=== PATIENT | female | born 1965 | race Caucasian/White ===

== ENCOUNTER 2021-01-23 20:19 | Inpatient (IN) | payer OTHER ==
[~2021-01-23] VITALS: Ht 154.9 cm; Wt 79.8 kg
[2021-01-23 20:35] VITALS: BP 139/64
--- NOTE | 2021-01-23 20:50 | NUR ---
55/F PATIENT BIB SELF FOR C/O STERNAL CP X 2 DAYS. PER PATIENT ALSO HAS R MID BACK PAIN. PATIENT BELIVES IT HAS TO DO WITH HER GALBLADDER. REPORTS NAUSEA AND DECREASED APPETITE. PT DENIES VOMITING, DIARRHEA MEDHX: GALLSTONES NKDA
--- NOTE | 2021-01-23 21:08 | NUR ---
EKG PERFORMED AT BEDSIDE. EKG READS SINUS RHYTHM @ 61
--- NOTE | 2021-01-23 21:38 | NUR ---
ULTRASOUND AT BEDSIDE
[2021-01-23 21:39] LABS: BASOPHILS # (AUTO) 0.1 K/uL (0.00-0.22); BASOPHILS % (AUTO) 0.6 % (0.0-2.0); EOSINOPHILS # (AUTO) 0.1 K/uL (0-0.4); EOSINOPHILS % (AUTO) 0.5 % (0.0-4.0); HEMATOCRIT 40.3 % (36-48); HEMOGLOBIN 13.3 g/dL (12.0-16.0); LYMPHOCYTES # (AUTO) 1.8 K/uL (2.5-16.5); LYMPHOCYTES % (AUTO) 15.1 % (20.5-51.1); MEAN CORPUSCULAR HEMOGLOBIN 30 pg (27-31); MEAN CORPUSCULAR HGB CONC 33 g/dL (33-37); MONOCYTES # (AUTO) 0.8 K/uL (0.8-1.0); MONOCYTES % (AUTO) 7.1 % (1.7-9.3); NEUTROPHILS # (AUTO) 8.9 K/uL (1.8-7.7); NEUTROPHILS % (AUTO) 76.7 % (42.2-75.2); PLATELET COUNT (AUTO) 350 K/uL (140-450); RED BLOOD CELL COUNT(AUTO) 4.43 MIL/uL (4.20-5.40); RED CELL DISTRIBUTION WIDTH 13.4 % (11.6-13.7); WHITE BLOOD COUNT (AUTO) 11.6 K/uL (4.8-10.8)
[2021-01-23] MEDS ORDERED: ONDANSETRON 4 MG/2 ML VIAL IVP ONE (21:40)
[2021-01-23] MEDS ORDERED: NACL 0.9% 1,000 ML IV ONE (21:40)
[2021-01-23] MEDS ORDERED: MORPHINE SULFATE 4 MG/ML SYR IVP ONE (21:40)
[2021-01-23 21:55] LABS: ALBUMIN 3.8 g/dL (3.4-5.0); ANION GAP 9.4 (8-16); CARBON DIOXIDE 28.5 mmol/L (21-32); CREATININE 0.6 mg/dL (0.6-1.3); POTASSIUM 3.9 mmol/L (3.5-5.1); TOTAL BILIRUBIN 0.4 mg/dL (0.0-1.0)
[2021-01-23] MEDS ORDERED: metroNIDAZOLE 500 MG/NS PREMIX 100 ML IV ONE (22:40)
[2021-01-23] MEDS ORDERED: LORazepam 2 MG/ML VIAL IVP PRN (23:15)
[2021-01-23] MEDS ORDERED: ONDANSETRON 4 MG/2 ML VIAL IVP PRN (23:15)
[2021-01-23] MEDS ORDERED: NAPR-54 PO (23:36)
[2021-01-23] MEDS ORDERED: TAMO20TA3 PO (23:36)
[2021-01-23] MEDS ORDERED: cefTRIAXone 1,000 MG VIAL ONE (23:43)
--- NOTE | 2021-01-24 00:02 | NUR ---
Patient will be admitted to care of DR. FLORES. Admited to TELEMETRY. Will go to room 119B. Belongings list completed. Report to ANU NAIK. PT TRANSPORTED BY EMT. Addendum: 01/24/21 at 0015 by FRANCIA PT ADMITTED TO [facility] ROOM 119
[2021-01-24 00:10] VITALS: BP 127/62
--- NOTE | 2021-01-24 00:10 | NUR ---
ADMITTED A 55F FROM ER. CAME BY WHEELCHAIR. MED SURG PT. AMBULATORY. CAME DUE TO RUQ ABDOMINAL PAIN THAT RADIATES TO THE BACK AND ALSO WITH NAUSEA. AWAKE,ALERT AND ORIENTED X4. SHE SAID SHE HAS THIS GALLSTONES IN THE PAST BUT NO SURGERY DONE. FLAGYL IVPB STILL INFUSING WHEN PT CAME TO THE FLOOR. SKIN INTACT ON ASSESSMENT. HAD HX OF BREAST CA YEAR 2018. HAD RADIATION AND MASS REMOVAL . PLAN OF CARE DISCUSSED AND VERBALIZED UNDERSTANDING. ORIENTED TO HOSPITAL ROUTINES, VISITING HOURS. FREQ ROUNDS NEEDED. BED ON LOW POSITION. CALL LIGHT PLACED WITHIN REACH. INSTRUCTED TO USE FOR ASSISTANCE . WILL CONTINUE TO MONITOR.
--- NOTE | 2021-01-24 01:19 | NUR ---
TALKED TO DR. NOEL AND GOT ORDER FOR IVF PT IS NPO FOR SURGERY LATER TODAY. PT NEED UA . ASKED ABOUT THE SURGERY AND HE SAID IT WILL BE TAKEN CARED OF LATER
--- NOTE | 2021-01-24 01:30 | NUR ---
ROUNDED ON PT. SHE STATES SHE HAS A HEADACHE. INFORMED HER THAT SHES NPO AND CANNOT RECEIVE TYLENOL BY MOUTH. PT STATED THE PAIN WAS TOLERABLE AND THAT SHE IS JUST HUNGRY THAT'S WHY SHE HAS A HEADACHE. GAVE ICE PACKS REQUESTED. WILL MONITOR PT. Addendum: 01/24/21 at 1429 by Char Braden RN NOTE WAS MEANT FOR 1330 PM NOT 0130 AM
[2021-01-24] MEDS: NACL 0.9% 1,000 ML IV SCH ×2 (01:37→12:03)
--- NOTE | 2021-01-24 03:00 | NUR ---
MADE ROUNDS. SLEEPING AT THIS TIME.
[2021-01-24 04:00] VITALS: BP 115/51
[2021-01-24] MEDS ORDERED: PIPERACILLIN/TAZOBACTAM 3.375 GM VIAL IV ONE ×2 (04:53→19:32)
[2021-01-24] MEDS: PIPERACILLIN/TAZOBACTAM 3.375 GM in DEXTROSE 5% 50 ML IV SCH ×3 (04:54→21:00)
[2021-01-24 05:40] LABS: BASOPHILS # (AUTO) 0.1 K/uL (0.00-0.22); BASOPHILS % (AUTO) 0.5 % (0.0-2.0); EOSINOPHILS # (AUTO) 0.2 K/uL (0-0.4); EOSINOPHILS % (AUTO) 1.8 % (0.0-4.0); HEMATOCRIT 37.7 % (36-48); HEMOGLOBIN 12.6 g/dL (12.0-16.0); LYMPHOCYTES # (AUTO) 2.1 K/uL (2.5-16.5); LYMPHOCYTES % (AUTO) 19.3 % (20.5-51.1); MEAN CORPUSCULAR HEMOGLOBIN 31 pg (27-31); MEAN CORPUSCULAR HGB CONC 33 g/dL (33-37); MEAN CORPUSCULAR VOLUME 91.3 fL (80-94); MONOCYTES # (AUTO) 1.2 K/uL (0.8-1.0); NEUTROPHILS # (AUTO) 7.4 K/uL (1.8-7.7); NEUTROPHILS % (AUTO) 67.4 % (42.2-75.2); PLATELET COUNT (AUTO) 336 K/uL (140-450); RED BLOOD CELL COUNT(AUTO) 4.13 MIL/uL (4.20-5.40); RED CELL DISTRIBUTION WIDTH 13.4 % (11.6-13.7); WHITE BLOOD COUNT (AUTO) 10.9 K/uL (4.8-10.8)
[2021-01-24 06:00] LABS: PROTHROMBIN TIME 10.6 secs (10.8-13.4)
--- NOTE | 2021-01-24 06:00 | NUR ---
PT KEPT NPO SINCE ADMISSION. PER MD ORDER. WITH IVF INFUSING WELL.
[2021-01-24 06:06] LABS: ALBUMIN 3.3 g/dL (3.4-5.0); ANION GAP 10.2 (8-16); CARBON DIOXIDE 28.5 mmol/L (21-32); CREATININE 0.6 mg/dL (0.6-1.3); MAGNESIUM 2.2 mg/dL (1.8-2.4); POTASSIUM 4.7 mmol/L (3.5-5.1); TOTAL BILIRUBIN 0.4 mg/dL (0.0-1.0)
--- NOTE | 2021-01-24 07:25 | NUR ---
RECEIVED BEDSIDE REPORT FROM OPERATING ROOM TECHNOLOGIST NURSE FOR CONTINUITY OF CARE. PT IS AWAKE AND ALERT, A&OX4. ON RA WITH BREATHING UNLABORED. PT IS AMBULATORY WITH STANDBY ASSISTANCE. SKIN IS WARM, DRY, AND INTACT. IV IS IN THE RIGHT AC 20 GAUGE RUNNING NS AT 80 ML PER HOUR PER ORDER. PT IS STABLE. PLAN OF CARE DISCUSSED.
--- NOTE | 2021-01-24 07:30 | NUR ---
ENDORSED PT IN STABLE CONDITION TO AM NURSE.
[2021-01-24 08:00] VITALS: BP 115/59
--- NOTE | 2021-01-24 08:29 | NUR ---
LOVENOX WAS HELD FOR PROCEDURE SCHEDULED TODAY AT 1800 PM.
--- NOTE | 2021-01-24 08:45 | NUR ---
SPOKE TO DR. DELGADO FROM [place]. SHE ASKED IF THE PT HAD BEEN VACCINATED FOR COVID. ASKED PT AND SHE RESPONDED THAT SHE RECEIVED THE MODERNA VACCINE BOTH DOSES IN OCTOBER 2020.
[2021-01-24] MEDS ORDERED: ENOXAPARIN 40 MG/0.4 ML SYR SUBQ SCH (09:00)
--- NOTE | 2021-01-24 09:09 | NUR ---
PATIENT HAS BEEN SCREENED AND CATEGORIZED LOW NUTRITION RISK. PATIENT WILL BE SEEN WITHIN 7 DAYS OF ADMISSION. 01/30/[address]
--- NOTE | 2021-01-24 09:46 | NUR ---
IS AT BEDSIDE TALKING TO PT. SHE APPEARS TO BE STABLE. DENIES PAIN OR N/V. BREATHING IS UNLABORED. PT IS AWARE OF PLAN OF CARE. WILL CONTINUE TO MONITOR.
[2021-01-24 10:46] LABS: APPEARANCE,URINE CLEAR (CLEAR); BILIRUBIN,URINE NEGATIVE (NEGATIVE); BLOOD, URINE TRACE-I (NEGATIVE); COLOR,URINE YELLOW (YELLOW); LEUKOCYTE ESTERASE ,URINE NEGATIVE (NEGATIVE); NITRITE, URINE NEGATIVE (NEGATIVE); UGLUCOSE NEGATIVE (NEGATIVE)
[2021-01-24 11:13] LABS: WBC,URINE 0-5 /HPF (0-5)
--- NOTE | 2021-01-24 11:41 | NUR ---
PT IS AWAKE, TALKING TO FAMILY AT BEDSIDE. PT DENIES PAIN. BREATHING IS UNLABORED ON RA. NO DISTRESS NOTED. PT IS STABLE.
[2021-01-24] MEDS ORDERED: fentaNYL citrate 0.05 MG/ML VIAL ONE ×2 (15:38→21:35)
[2021-01-24] MEDS ORDERED: SUCCINYLCHOLINE CHLORIDE 200 MG/10 ML VIAL IVP ONE (15:39)
[2021-01-24] MEDS ORDERED: ROCURONIUM 50 MG/5 ML VIAL IV ONE (15:39)
[2021-01-24] MEDS ORDERED: LIDOCAINE MPF 2% 100 MG/5 ML VIAL INJ ONE (15:39)
[2021-01-24] MEDS ORDERED: PROPOFOL 200 MG/20 ML VIAL IV ONE (15:39)
[2021-01-24] MEDS ORDERED: BUPIVACAINE-MPF/EPI 0.25% 30 ML VIAL INJ ONE (15:48)
--- NOTE | 2021-01-24 15:50 | NUR ---
DR. CALVILLO AT BEDSIDE EXPLAINING PROCEDURE TO PT. RISKS AND BENEFITS WERE IDENTIFIED AND PT VERBALIZED UNDERSTANDING. ALL QUESTIONS ANSWERED. PT AGREED TO THE PROCEDURE. CONSENTS SIGNED. Addendum: 01/24/21 at 1606 by Char Braden RN TWO ER NURSES WITNESSED WELL AT BEDSIDE.
[2021-01-24 16:00] VITALS: BP 129/45
--- NOTE | 2021-01-24 16:08 | NUR ---
PT WAS TAKEN OFF THE UNIT TO THE OR WITH TWO OR NURSES. PT WAS TRANSPORTED VIA BED. PT IS STABLE. WILL WAIT FOR RETURN.
--- NOTE | 2021-01-24 17:44 | NUR ---
PT IS STILL IN OR. WILL WAIT FOR PT TO ARRIVE BACK TO UNIT.
[2021-01-24] MEDS ORDERED: ONDANSETRON 4 MG/2 ML VIAL IVP PRN (18:40)
[2021-01-24] MEDS ORDERED: diphenhydrAMINE 50 MG/ML VIAL IVP PRN (18:40)
[2021-01-24] MEDS ORDERED: LACTATED RINGERS 1,000 ML IV SCH (18:40)
[2021-01-24] MEDS ORDERED: MEPERIDINE 25 MG/ML SYR IVP PRN (18:40)
[2021-01-24] MEDS ORDERED: SEVOFLURANE 250 ML BTL INH ONE (19:00)
[2021-01-24] MEDS ORDERED: DEXAMETHASONE 4 MG/ML VIAL ONE (19:16)
[2021-01-24] MEDS ORDERED: NEOSTIGMINE 1:1000 10 MG/10 ML VIAL ONE (19:17)
[2021-01-24] MEDS ORDERED: METOCLOPRAMIDE 10 MG/2 ML INJ VIAL ONE (19:17)
[2021-01-24] MEDS ORDERED: KETOROLAC 30 MG/ML VIAL ONE (19:17)
[2021-01-24] MEDS ORDERED: ONDANSETRON 4 MG/2 ML VIAL ONE (19:17)
[2021-01-24] MEDS ORDERED: GLYCOPYRROLATE 0.2 MG/ML VIAL ONE (19:17)
[2021-01-24] MEDS ORDERED: MEPERIDINE 25 MG/ML SYR ONE (19:20)
--- NOTE | 2021-01-24 19:30 | NUR ---
RECEIVED REPORT FROM SERA SANDRA DAYSHIFT NURSE, PT IS IN OR AT THIS TIME
--- NOTE | 2021-01-24 19:34 | NUR ---
ENDORSED REPORT TO BETTING CLERK NURSE FOR CONTINUITY OF CARE. PT IS STILL IN THE OR. PLAN OF CARE DISCUSSED.
[2021-01-24] MEDS: LACTATED RINGERS 1,000 ML IV SCH (21:00)
[2021-01-24] MEDS: fentaNYL citrate 0.05 MG/ML VIAL IVP PRN ×4 (21:38→22:08)
--- NOTE | 2021-01-24 22:30 | NUR ---
PT RETURNED FROM OR. SHE IS DROWSY AND MOANING ON ROOM AIR AND WITH IV SITE INTACT FLUIDS STOPPED AT THIS TIME. REPORT WAS GIVEN AT BEDSIDE FORM OR. PT RECENTLY MEDICATED IN PACU DEPARTMENT. V/S FOLLOWS: T 97.7 P 59 B/P 132/75 02 90% ON ROOM AIR. PT WENT BACK TO SLEEP. NORMAL SALINE RESTARTED AT 80MLS/HR.
--- NOTE | 2021-01-24 23:00 | NUR ---
PT IN BED ASLEEP, V/S FOLLOWS: T 97.6 P 60 R 18 B/P 130/74 02 90%.
--- NOTE | 2021-01-24 23:30 | NUR ---
PT IN BED SLEEPING, IV SITE INTACT AND RUNNING IBRAHIMA;L SALINE AT 80MLS/HR ORDERED. PT RETURNED FROM SURGERY WITH 5 SURGICAL INCISIONS ON ABDOMEN MEASURING 1CM -2CM IN LENGTH AND 0.2 TO 0.3CM IN WIDTH. SURGICAL INCISIONS CLOSED WITH DERMABOND. THE LARGEST INCISION IS THE UMBILICAL INCISION MEASURING 4CM LONG. HAS A SMALLL GAUZE AND COVERED WITH TEGADERM DUE TO A SMALL AMOUNT OF DRAINAGE. PICTURE TAKEN. V/S STABLE, PT RESTING WITH EYES CLOSED.
--- NOTE | 2021-01-25 01:00 | NUR ---
ROUNDS DONE, PT IN BED ASLEEP, ALL ORDERED PRECAUTIONS IN PLACE IV FLUIDS RUNNING ORDERED.
[2021-01-25] MEDS: MORPHINE SULFATE 2 MG/ML SYR IVP PRN ×2 (03:11→08:14)
--- NOTE | 2021-01-25 03:15 | NUR ---
PT AWAKE GIVEN BED CHAMPION REQUESTED. SHE ALSO C/O OF MODERATE 6/10 PAIN IN THE ABDOMEN, AND WAS GIVEN IVP MORPHINE ORDERED. PT ALSO REQUEST SOMETHING TO EAT AND DRINK. PT REMINDED THAT SHE IS ON A CLEAR LIQUID DIET AND WILL BE ADVANCED TOLERATED.
[2021-01-25 04:00] VITALS: BP 107/74
--- NOTE | 2021-01-25 04:30 | NUR ---
PT IN BED SHE WAS TAKEN ON AND OFF THE BED CHAMPION REQUESTED. PT VOIDED A TOTAL OF X2. LAST V/S FOLLOWS: T 97.6 P 74 R 18 B/P 107/74 02 93% ON ROOM AIR. ALL ORDERED PRECAUTIONS IN PLACE. SURGICAL WOUNDS ON ABDOMEN IN PLACE, NO DRAINAGE NOTED.
[2021-01-25 05:14] LABS: BASOPHILS % (AUTO) 0.3 % (0.0-2.0); EOSINOPHILS % (AUTO) 0.1 % (0.0-4.0); HEMATOCRIT 36.3 % (36-48); HEMOGLOBIN 12.3 g/dL (12.0-16.0); LYMPHOCYTES # (AUTO) 1.2 K/uL (2.5-16.5); LYMPHOCYTES % (AUTO) 9.3 % (20.5-51.1); MEAN CORPUSCULAR HEMOGLOBIN 31 pg (27-31); MEAN CORPUSCULAR HGB CONC 34 g/dL (33-37); MEAN CORPUSCULAR VOLUME 90.5 fL (80-94); MONOCYTES # (AUTO) 0.3 K/uL (0.8-1.0); MONOCYTES % (AUTO) 2.1 % (1.7-9.3); NEUTROPHILS # (AUTO) 11.2 K/uL (1.8-7.7); NEUTROPHILS % (AUTO) 88.2 % (42.2-75.2); PLATELET COUNT (AUTO) 299 K/uL (140-450); RED BLOOD CELL COUNT(AUTO) 4.01 MIL/uL (4.20-5.40); RED CELL DISTRIBUTION WIDTH 13.5 % (11.6-13.7); WHITE BLOOD COUNT (AUTO) 12.7 K/uL (4.8-10.8)
[2021-01-25 05:41] LABS: ALBUMIN 3.1 g/dL (3.4-5.0); ANION GAP 10.5 (8-16); CARBON DIOXIDE 26.5 mmol/L (21-32); CREATININE 0.6 mg/dL (0.6-1.3); TOTAL BILIRUBIN 0.5 mg/dL (0.0-1.0)
[2021-01-25] MEDS ORDERED: PIPERACILLIN/TAZOBACTAM 3.375 GM VIAL IV ONE (06:12)
[2021-01-25] MEDS: PIPERACILLIN/TAZOBACTAM 3.375 GM in DEXTROSE 5% 50 ML IV SCH ×3 (06:17→21:17)
[2021-01-25] MEDS: LACTATED RINGERS 1,000 ML IV SCH ×2 (06:18→17:00)
--- NOTE | 2021-01-25 07:30 | NUR ---
RECEIVED REPORT FROM EXPERIMENTAL PHYSICIST NURSE FOR CONTINUITY OF CARE. AOX4, KYRGYZ SPEAKING, UNDERSTANDS SOME MACEDONIAN. MEDSURG. ON ROOM AIR. ON CLEAR LIQUID DIET. POST OP DAY 1, PASSING GAS. NO BM LAST NIGHT. IV CLEAN, DRY, AND INTACT, ON RIGHT ANTECUBITAL 20 GAUGE, INFUSING NORMAL SALINE 0.9 AT 80 ML/HR. 5 SURGICAL INCISION ON ABDOMEN. CALL LIGHT WITHIN REACH. SAFETY MEASURES IN PLACE, BED LOCKED, BED IN LOW POSITION. WILL CONTINUE TO MONITOR.
--- NOTE | 2021-01-25 07:40 | NUR ---
DR. CALVILLO CALLED. UPDATED ON PATIENT STATUS AND CONDITION. ORDERS PLACED. WILL CONTINUE TO MONITOR.
[2021-01-25 08:00] VITALS: BP 129/70
[2021-01-25] MEDS: TAMOXIFEN 10 MG TAB PO SCH (08:13)
--- NOTE | 2021-01-25 08:13 | NUR ---
ADMINISTERED SCHEDULED AM MEDICATION AND MORPHINE FOR PAIN 12/16. WILL CONTINUE TO MONITOR.
--- NOTE | 2021-01-25 08:45 | NUR ---
DR. FLORES ROUNDING ON PATIENT. UPDATED ON STATUS AND CONDITION. AWARE DR. CALVILLO CLEARED PATIENT FOR DISCHARGE IF DR. FLORES APPROVES. WILL CONTINUE TO MONITOR.
[2021-01-25] MEDS ORDERED: norco (09:31)
[2021-01-25] MEDS ORDERED: ACET-9527 PO (09:31)
[2021-01-25] MEDS: HYDROmorphone 1 MG/ML AMP IVP PRN ×2 (12:49→21:29)
--- NOTE | 2021-01-25 14:21 | NUR ---
CHECKED ON PATIENT. NO SIGN OF PAIN OR DISTRESS. WILL CONTINUE TO MONITOR.
--- NOTE | 2021-01-25 14:22 | NUR ---
DC PLANNING: CM SPOKE WITH PATIENT AT BEDSIDE WITH HER SON ACTING OUTDOOR EMERGENCY CARE TECHNICIAN, ALSO PRESENT. PATIENT WAS INDEPENDENT IN ALL ACTIVITIES PRIOR TO ADMISSION FOR [facility]E BORREGO. LIVES IN A SECOND FLOOR APARTMENT WITH STAIR ACCESS. NO PRIOR HOME HEALTH OR DME. CONFIRMED DEMOGRAPHIC INFORMATION. PATIENT WITH LIMITED AMBULATION WITH P.T. RELATED TO PAIN, BELKIS Petersen REQUESTING THAT PATIENT HAVE FWW FOR DISCHARGE. ORDER OBTAINED, FAXED TO [facility], CONTRACTED PROVIDER FOR [facility]. SPOKE WITH CM AT [facility], NO AUTH NEEDED FOR FWW. PER GRANT AT [facility] FWW WILL BE DELIVERED TO THE HOSPITAL BETWEEN 6 AND 8 PM THIS EVENING. DELIVERY TIME ENDORSED TO PATIENTS NURSE BINGHAM, DAVIS WILL CONTINUE TO FOLLOW FOR NEEDS. Addendum: 01/31/21 at 1401 by Nat Milligan CM POST DISCHARGE MD APPOINTMENT: CHRISTY LEFT WITH PATIENT REMINDING HER TO MAKE A FOLLOW UP APPOINTMENT WITH HER PCP NORMA DIXON. MD PHONE NUMBER ALSO LEFT ON CHRISTY.
[2021-01-25 16:00] VITALS: BP 109/59
[2021-01-25] MEDS ORDERED: AMOX-1000 PO (17:24)
--- NOTE | 2021-01-25 18:12 | NUR ---
CHECKED ON PATIENT, NO SIGN OF DISTRESS OR PAIN. WILL CONTINUE TO MONITOR. WILL ENDORSE TO BALANCE WEIGHER.
--- NOTE | 2021-01-25 19:25 | NUR ---
ENDORSED TO GATE MORTISER OPERATOR RN FOR CONTINUITY OF CARE.
--- NOTE | 2021-01-25 19:30 | NUR ---
RECEIVED REPORT AT BEDSIDE FOR CONTINUITY OF CARE, PT IN STABLE CONDITION.
[2021-01-25 20:00] VITALS: BP 120/72
--- NOTE | 2021-01-25 20:00 | NUR ---
PT IN BED LYING DOWN SHE IS AOX4 MOSTLY SLOVAK SPEAKING. SHE IS ON ROOM AIR AND HAS A 20G RAC INTACT AND RUNNING FLUIDS ORDERED. V/S FOLLOWS: T 99.0 P 78 R 20 B/P 120/72 02 88 ON ROOM AIR, SHE WAS GIVEN 2 LITERS VIA N/C AND 02 WENT UP TO 95%. SURGICAL SITES INTACT WITH NO DRAINAGE NOTED. ALL FALLS PRECAUTIONS IN PLACE.
--- NOTE | 2021-01-25 21:30 | NUR ---
PT SITTING UP IN BED WITH 2 LITERS VIA N/C. FWW AT BEDSIDE, DISCUSSED WITH PT IMPORTANCE OF AMBULATING WITH WALKER. EDUCATION REGARDING MEDICATION AND DISCHARGE PLAN SHARED WITH PT , SHE VERBALIZED UNDERSTANDING. PT HAD BEEN GIVEN COOLING MEASURES DUE TO INCREASED TEMP, WHICH WAS RETAKEN AND IT WAS 98.1 PT WAS GIVEN DILAUDID IVP /PRN FOR 8/10 PAIN IN ABDOMEN. ENCOURAGE PT TO AMBULATE NEXT TIME TO THE BATHROOM WITH FWW AND STANDBY ASSISTANCE. PT VERBALIZED UNDERSTANDING.
--- NOTE | 2021-01-26 01:00 | NUR ---
PT ABLE TO AMBULATE TO TOILET WITH STAND BY ASSIST AND FWW.
[2021-01-26] MEDS: LACTATED RINGERS 1,000 ML IV SCH (03:02)
[2021-01-26] MEDS: HYDROmorphone 1 MG/ML AMP IVP PRN (05:10)
[2021-01-26] MEDS: PIPERACILLIN/TAZOBACTAM 3.375 GM in DEXTROSE 5% 50 ML IV SCH ×3 (05:11→22:37)
--- NOTE | 2021-01-26 05:15 | NUR ---
PT SITTING AT THE EDGE OF THE BED, WITH C/ OF SEVERE PAIN, SHE WAS GIVEN IVP /PRN DILAUDID AND IVPB ZOSYN HUNG AND RUNNING AT 100MLS/HR ORDERED ALL ORDERED PRECAUTIONS IN PLACE. . V/S FOLLOWS: T 98.4 P 73 R 20 B/P 122/68 02 93% ON ROOM AIR WITH 2 LITERS VIA N/C.
--- NOTE | 2021-01-26 07:55 | NUR ---
RECEIVED REPORT FROM WIND OPERATIONS MANAGER NURSE FOR CONTINUITY OF CARE. AOX4, PANAMANIAN SPEAKING, UNDERSTANDS SOME BULGARIAN. MEDSURG. ON ROOM AIR. ON CLEAR LIQUID DIET. POST OP DAY 1, PASSING GAS. NO BM LAST NIGHT. IV CLEAN, DRY, AND INTACT, ON RIGHT ANTECUBITAL 20 GAUGE, INFUSING NORMAL SALINE 0.9 AT 80 ML/HR. 5 SURGICAL INCISION ON ABDOMEN. CALL LIGHT WITHIN REACH. SAFETY MEASURES IN PLACE, BED LOCKED, BED IN LOW POSITION. WILL CONTINUE TO MONITOR.
[2021-01-26 08:00] VITALS: BP 116/64
[2021-01-26] MEDS: TAMOXIFEN 10 MG TAB PO SCH (08:33)
--- NOTE | 2021-01-26 08:35 | NUR ---
ADMINISTERED SCHEDULED AM MEDICATIONS. ORAL CARE, HYGIENE CARE, AND CHG BATH PROVIDED. WILL CONTINUE TO MONITOR.
[2021-01-26] MEDS: HYDROcodone/APAP 5/325 MG 1 TAB TAB PO PRN ×3 (10:29→21:19)
[2021-01-26] MEDS ORDERED: POLYETHYLENE GLYCOL 17 GM/PKT PO SCH (11:00)
[2021-01-26] MEDS ORDERED: LACTULOSE 20 GM/30 ML UDC PO SCH (11:00)
[2021-01-26 12:32] VITALS: BP 116/64
--- NOTE | 2021-01-26 13:07 | NUR ---
ADMINISTERED ZOSYN IVPB. WILL CONTINUE TO MONITOR.
--- NOTE | 2021-01-26 14:20 | NUR ---
CHECKED ON PATIENT. NO SIGN OF DISTRESS OR PAIN. WILL CONTINUE TO MONITOR.
[2021-01-26 16:00] VITALS: BP 120/61
--- NOTE | 2021-01-26 16:00 | NUR ---
PATIENT RESTING IN CHAIR SATURATING AT 89-90. ASSISTED BACK TO BED AND PLACED NASAL CANNULA 2L FOR SHORTNESS OF BREATHE. SATURATION INCREASED TO 94-95. WILL CONTINUE TO MONITOR.
--- NOTE | 2021-01-26 16:10 | NUR ---
DR. RAJINDER FERNANDEZ. UPDATED ON PATIENT CONDITION AND STATUS. AWARE OF PATIENTS SURGICAL SITES AND RECOMMENDS TO CLEAN EACH SITE WITH IODINE AND LEAVE OPEN TO AIR. WILL CONTINUE TO MONITOR.
--- NOTE | 2021-01-26 17:10 | NUR ---
PAGED DR. FLORES, ASKED TO CANCEL DISCHARGE ORDER, SAID OKAY. LEFT ACTIVE, IF PATIENT WANTS TO BE DISCHARGED TOMORROW. WILL CONTINUE TO MONITOR.
--- NOTE | 2021-01-26 17:56 | NUR ---
CHECKED ON PATIENT. NO SIGN OF DISTRESS OR PAIN. WILL CONTINUE TO MONITOR. WILL ENDORSE TO CATALOG LIBRARY ASSISTANT.
--- NOTE | 2021-01-26 19:36 | NUR ---
ENDORSED TO DATA TYPIST FOR CONTINUITY OF CARE.
--- NOTE | 2021-01-26 19:37 | NUR ---
RECD. RESTING IN BED, AWAKE, A/OX4. RESPIRATION EVEN AND UNLABORED. ON 02 AT 2 LITERS VIA N/C, SATURATING AT 96-97%. IV OF NS AT TKO, RIGHT AC G20. SURGICAL INCISION IN THE ABDOMEN (5) WITH DERMA RODRIGUES, ALL DRY AND INTACT. ABLE TO AMBULATE WITH ASSISTANCE. MEDICATIONS AND CARE FOR THE NIGHT DISCUSSED WITH PATIENT. VERBALIZED UNDERSTANDING. PAIN IN THE ABDOMEN, /, STATED TOLERABLE. WILL MEDICATE PER MD ORDER. AT THE BEDSIDE.
[2021-01-26 20:00] VITALS: BP 138/65
[2021-01-26] MEDS ORDERED: ENOXAPARIN 40 MG/0.4 ML SYR SUBQ SCH (20:05)
[2021-01-26] MEDS: DOCUSATE SODIUM 100 MG GELCAP PO SCH (21:18)
--- NOTE | 2021-01-26 21:18 | NUR ---
SCHEDULED MEDICATIONS GIVEN. STATED THAT COLACE DOS NOT WORK FOR HER. WILL NOTIFY MD. ASSISTED OUT OF BED TO GO TO BR TO VOID USING WALKER. BACK TO BED AFTER VOIDING, SAFETY MAINTAINED.
--- NOTE | 2021-01-26 21:55 | NUR ---
REVIEWED PATIENTS CHART AND ALLERGIES. PROVIDED EDUCATION ON MEDICATION INDICATIONS. SCHEDULED IV ANTIBIOTICS ADMINISTERED FOR PRIMARY RN.
--- NOTE | 2021-01-26 23:03 | NUR ---
REFUSED LOVENOX. EXPLAINED IT'S IMPORTANCE IN THE PREVENTION OF DVT, STILL REFUSED.
[2021-01-26] MEDS ORDERED: bisacodyL 10 MG SUPP RC ONE (23:05)
[2021-01-26] MEDS ORDERED: SIMETHICONE 80 MG TAB.CHEW PO PRN (23:05)
[2021-01-27] VITALS: BP 142/60
[2021-01-27] MEDS ORDERED: bisacodyL 10 MG SUPP RC ONE (02:11)
[2021-01-27] MEDS: HYDROcodone/APAP 5/325 MG 1 TAB TAB PO PRN ×2 (02:17→09:51)
--- NOTE | 2021-01-27 02:17 | NUR ---
COMPLAINED NO BM SINCE 01/24/21, MEDICATED WITH DULCOLAX SUPPOSITORY.
[2021-01-27 05:25] LABS: BASOPHILS # (AUTO) 0.1 K/uL (0.00-0.22); BASOPHILS % (AUTO) 0.6 % (0.0-2.0); EOSINOPHILS # (AUTO) 0.2 K/uL (0-0.4); EOSINOPHILS % (AUTO) 1.5 % (0.0-4.0); HEMATOCRIT 33.7 % (36-48); HEMOGLOBIN 11.3 g/dL (12.0-16.0); LYMPHOCYTES # (AUTO) 2.1 K/uL (2.5-16.5); LYMPHOCYTES % (AUTO) 20.7 % (20.5-51.1); MEAN CORPUSCULAR HEMOGLOBIN 31 pg (27-31); MEAN CORPUSCULAR HGB CONC 34 g/dL (33-37); MEAN CORPUSCULAR VOLUME 90.8 fL (80-94); MONOCYTES # (AUTO) 0.9 K/uL (0.8-1.0); MONOCYTES % (AUTO) 8.6 % (1.7-9.3); NEUTROPHILS % (AUTO) 68.6 % (42.2-75.2); PLATELET COUNT (AUTO) 241 K/uL (140-450); RED BLOOD CELL COUNT(AUTO) 3.71 MIL/uL (4.20-5.40); RED CELL DISTRIBUTION WIDTH 13.6 % (11.6-13.7); WHITE BLOOD COUNT (AUTO) 10.2 K/uL (4.8-10.8)
--- NOTE | 2021-01-27 05:30 | NUR ---
ASSISTED TO GO TO BR USING WALKER. HAD LARGE BM, DARK BROWN STOOLS. BACK TO BED, SAFETY MAIN TAINED.
[2021-01-27 05:49] LABS: ALBUMIN 2.8 g/dL (3.4-5.0); ANION GAP 9.1 (8-16); CARBON DIOXIDE 29.7 mmol/L (21-32); CREATININE 0.5 mg/dL (0.6-1.3); POTASSIUM 3.8 mmol/L (3.5-5.1); TOTAL BILIRUBIN 0.5 mg/dL (0.0-1.0)
[2021-01-27] MEDS: PIPERACILLIN/TAZOBACTAM 3.375 GM in DEXTROSE 5% 50 ML IV SCH (06:12)
--- NOTE | 2021-01-27 06:12 | NUR ---
REVIEWED PATIENTS CHART AND ALLERGIES. PROVIDED EDUCATION ON MEDICATION INDICATIONS. SCHEDULED IV ANTIBIOTICS ADMINISTERED FOR PRIMARY RN.
--- NOTE | 2021-01-27 06:50 | NUR ---
CONDITION REMAIN STABLE. ALL NEEDS ATTENDED. WILL ENDORSE TO AM SHIFT NURSE FOR CONTINUITY OF CARE.
--- NOTE | 2021-01-27 07:35 | NUR ---
RECEIVED REPORT FROM HEALTH CARE COACH NURSE. PATIENT SUPINE IN BED, SLEEPING, ANSWERS TO NAME, ABLE TO MAKE NEEDS KNOWN. BREATHING EVEN AND UNLABORED NO SIGNS OF ACUTE DISTRESS, ON 2L NC. R AC 20G, SL. 5 ABD DERMABOND INCISION S/P PROCEDURE. SAFETY MEASURES IN PLACE.
[2021-01-27] MEDS: DOCUSATE SODIUM 100 MG GELCAP PO SCH (08:34)
[2021-01-27] MEDS: TAMOXIFEN 10 MG TAB PO SCH (08:35)
--- NOTE | 2021-01-27 08:39 | NUR ---
ADMINISTERED SCHEDULED MEDS PER MD ORDER. MED EDUCATION PROVIDED, PATIENT VERBALIZES UNDERSTANDING.
[2021-01-27 10:30] VITALS: BP 118/60
== END 2021-01-27 12:25 | disposition home or self-care (01) | DRG 263 ==
LOC: MED 20:19 → MTU 23:15
PROVIDERS: ADMIT Internal Medicine; ATTEND Internal Medicine
PROC: 0FT44ZZ Resection of Gallbladder, Percutaneous Endoscopic Approach (ICD-10-PCS; principal; 2021-01-24 18:00)
DX: K80.00 Calculus of gallbladder with acute cholecystitis without obstruction (principal); K76.0 Fatty (change of) liver, not elsewhere classified; E66.9 Obesity, unspecified; K59.00 Constipation, unspecified; Z68.33 Body mass index [BMI] 33.0-33.9, adult; Z85.3 Personal history of malignant neoplasm of breast; Z90.12 Acquired absence of left breast and nipple
CPT/HCPCS: 36415; 71045; 76705; 80053; 81001; 83690; 83735; 84484; 84703; 85025; 85379; 85610; 85730; 86886; 86900; 86901; 87081; 88304; 93005; 96361; 96365; 96375; 97112; 97116; 97163-GP; 97530; 99285; J0330; J0696; J1100; J1170; J1650; J1885; J2001; J2175; J2270; J2405; J2543; J2704; J2710; J2765; J3010; J3490; J7060; J7120